=== PATIENT | female | born 1935 | race Caucasian/White ===

== ENCOUNTER 2019-06-01 16:41 | Inpatient (IN) ==
[2019-06-01] MEDS ORDERED: NS 1,000 ML IV ONE ×2 (16:45→19:16)
[2019-06-01] MEDS ORDERED: ZOFRAN IV ONE (16:45)
[2019-06-01] MEDS ORDERED: TORADOL IV ONE (16:45)
[2019-06-01] MEDS ORDERED: FENTANYL IV ONE (16:45)
[2019-06-01 17:23] LABS: BASO# 0.12 X1000 (0.0-0.2); BASO% 1.2 % (0.0-0.8); EOS# 0.02 X1000 (0.0-0.7); EOS% 0.2 % (0.0-10.0); HEMATOCRIT 37.1 % (37.0-47.0); HEMOGLOBIN 12.5 g/dL (12.0-16.0); IMM GRAN# 0.03 X1000 (0.0-0.04); IMM GRAN% 0.3 % (0.0-0.5); LYMPH# 0.77 X1000 (1.2-3.4); LYMPH% 7.5 % (20.5-51.1); MCH 31.6 PG (27-31); MCHC 33.7 g/dL (33-37); MCV 93.7 FL (81-99); MONO# 0.54 X1000 (0.11-0.59); MONO% 5.3 % (1.7-9.3); NEUT# 8.73 X1000 (1.4-6.5); NEUT% 85.5 % (42.2-75.2); PLT 124 X1000 (130-400); RBC 3.96 XMIL (4.2-5.4); RDW 13.5 % (11.5-14.5); WBC 10.21 X1000 (4.8-10.8)
[2019-06-01 17:31] LABS: INR 1.09; PROTIME 14.2 Seconds (11.0-16.0)
[2019-06-01 17:32] LABS: PTT 26.1 Seconds (22.3-41.8)
[2019-06-01 17:41] LABS: AGAP 14; ALB/GLOB RATIO 2.4; ALBUMIN 4.4 g/dL (3.5-5.0); ALKALINE PHOSPHATASE 54 U/L (32-104); BUN 11 mg/dL (8-22); CALCIUM 9.9 mg/dL (8.8-10.2); CHLORIDE 100 mmol/L (98-107); COSMO 280; CREATININE 0.5 mg/dL (0.5-0.9); ESTIMATED GFR > 60; GLUCOSE 159 mg/dL (70-104); GOT 15 U/L (10-30); GPT 10 U/L (10-36); POTASSIUM 3.7 mmol/L (3.5-5.1); SODIUM 139 mmol/L (136-145); TCO2 25 mmol/L (25-35); TOTAL BILIRUBIN 0.66 mg/dL (0.20-1.00); TOTAL PROTEIN 6.2 g/dL (6.3-8.3)
--- NOTE | 2019-06-01 17:59 | PROVIDER DOCUMENTATION ---
This chart was entered by Fern Henriquez Scribe, acting as scribe for David Hathaway MD. HPI-General Adult - General Stated Complaint: FALL Time Seen by Provider: 06/01/19 16:42 Source: patient, EMS Allergies/Adverse Reactions: Patient Allergies Allergy/AdvReac Type Severity Reaction Status Date / Time morphine Allergy Unknown Verified 06/01/19 16:58 Home Medications: Home Medication List Medication Instructions Recorded Confirmed Last Taken Type ATORVAstatin [Lipitor] 40 mg PO DAILY 10/26/13 06/01/19 03/01/16 07:00 History Sucralfate [Carafate] 1 gm PO 410/26/13 06/01/19 03/01/16 07:00 History Atenolol 1 tab PO DAILY 06/01/19 06/01/19 Unknown History Tizanidine HCl [Zanaflex] 1 cap PO TID 06/01/19 06/01/19 Unknown History - History of Present Illness -Gen Adult Nature of Presenting Problems: pt si a 83 yr old female presenting via EMS with right hip pain post fall, son reported to EMS pt tripped over comforter while making her bed. pt admits right hip pain and inability to bear weight no other complaints. Location of Pain/Injury: reports: lower extremity (right hip) Pain Radiation: reports: no radiation Quality of Pain: reports: aching Severity: reports: moderate Onset/Duration: reports: this afternoon Timing: reports: still present Context/Activities at Onset: reports: recent trauma history (fall) Modifying Factors: improves with: movement (worsens pain) Associated Symptoms: reports: joint pain, trouble walking. denies: back/neck pain Similar Symptoms Previously?: No Recently seen or treated by another doctor?: No Review of Systems - Adult - REVIEW OF SYSTEMS - ADULT Constitutional: denies: chills, fever Eyes: reports: no symptoms reported Ears, Nose, Mouth & Throat: reports: no symptoms reported Cardiovascular: denies: chest pain, palpitations, syncope Respiratory: denies: cough, shortness of breath Gastrointestinal: denies: abdominal pain, nausea, vomiting Genitourinary: reports: no symptoms reported Musculoskeletal: reports: joint pain. denies: back pain Integumentary: reports: no symptoms reported Neurological: denies: dizziness/vertigo, headache/migraines, syncope Psychiatric: reports: no symptoms reported Endocrine: reports: no symptoms reported Hematologic/Lymphatic: reports: no symptoms reported Allergic/Immunologic: reports: no symptoms reported All Other Systems: Reviewed and Negative Past History - Adult - PAST MEDICAL HISTORY-ADULT Review of Records: reports: Old Records Reviewed, Nursing Assessment Review, Medications Reviewed, Social history reviewed & non-contributory. Major Childhood Illnesses: reports: denies history Cardiovascular: reports: denies history Respiratory: reports: denies history Gastrointestinal: reports: denies history Obstetrical/Gynecological: reports: denies history Genitourinary: reports: denies history Musculoskeletal: reports: denies history Neurological: reports: denies history Endocrine/Immune: reports: denies history Other Conditions: reports: denies history - IMMUNIZATION STATUS Childhood Immunizations: See Nurse Assessment Flu Vaccine: See Nurse Assessment - FAMILY HISTORY Family History: reviewed, not pertinent - SOCIAL HISTORY Smoking: denies Substance Use: denies Living Situation: family Physical Exam-General - PHYSICAL EXAM-ADULT Initial Vital Signs Reviewed: Yes - CONSTITUTIONAL General Appearance: appears well, alert, no apparent distress - EYES Eyes: PERRL/EOMI - HEAD, EARS, NOSE, MOUTH & THROAT HENMT: normocephalic/atraumatic, moist mucous membranes - NECK Neck: non-tender, full range of motion, supple, normal inspection - RESPIRATORY Respiratory: chest non-tender, lungs clear, normal breath sounds, no respiratory distress, no accessory muscle use - CARDIOVASCULAR Cardiovascular: normal peripheral pulses, regular rate, rhythm, no edema - GASTROINTESTINAL (ABDOMEN) Abdominal Exam: normal bowel sounds, non tender, soft - LYMPHATIC Lymphatic: no adenopathy - MUSCULOSKELETAL Back Exam: normal inspection, no CVA tenderness, no vertebral tenderness Extremity: no calf tenderness, normal capillary refill, tenderness (minimal tenderness with palpation right hip, significant tenderness with movement), other (mild shortening right leg, no rotation). negative: normal range of motion (resitis external/internal rotation) - SKIN Integumentary: normal color, normal turgor, warm/dry - NEUROLOGIC Neurologic: grossly normal, no motor/sensory deficits - PSYCHIATRIC Psych/Mental Status: normal mood/affect Progress - PLAN OF CARE/RESULTS Result Diagrams: 06/01/19 17:10 06/01/19 17:10 - REASSESSMENT Reassessment #1 Time Reassessed: 17:46 Status: improving (Given IVF, fentanyl, zofran and geriatric dose of toradol. I spoke with patient's son, regarding admitting diagnosis and plan.) - CONSULTS/PCP/HOSPITALIST Notification #1 *Consult/PCP/Hospitalist*: sariah Calixto MD, paged at 1745 Time Discussed: 17:58 Consult Disposition: Will see in ED #2 Consult: KIA Hill, paged at 1745 Time Discussed: 17:57 Consult Disposition: Will see in ED, Admit Departure - Departure Date of Disposition Decision: 06/01/19 Time of Disposition Decision: 17:47 DIAGNOSIS: Intertrochanteric fracture of right femur Qualifiers: Encounter type: initial encounter Fracture type: closed Fracture alignment: displaced Qualified Code(s): S72.141A - Displaced intertrochanteric fracture of right femur, initial encounter for closed fracture Dementia Qualifiers: Dementia type: Alzheimer's disease Alzheimer's disease onset: late-onset Dementia behavioral disturbance: without behavioral disturbance Qualified Code(s): G30.1 - Alzheimer's disease with late onset; F02.80 - Dementia in other diseases classified elsewhere without behavioral disturbance Fall as cause of accidental injury at home as place of occurrence Qualifiers: Encounter type: initial encounter Qualified Code(s): W19.XXXA - Unspecified fall, initial encounter; Y92.009 - Unspecified place in unspecified non- institutional (private) residence as the place of occurrence of the external cause Disposition: ADMITTED INPATIENT 09 Certified Medical Emergency: Emergent Condition: Stable Referrals and Follow-Ups: Robi Carlos MD [Primary Care Provider] - - Critical Care Note This patient required my direct & personal management of CC.: No Attestation - Physician/ MONICA Attestation Patient care was provided by Advanced Practice Provider:: No The physician spent face to face time with patient:: Yes Advanced Practice Provider documentation review:: Supervising physician onsite and consulted in the evaluation and care of this patient. The physician did have a face to face encounter with the patient. This chart was documented by the indicated scribe, (Fern Henriquez Scribe) and accurately reflects the services I performed and decisions made by me, David Hathaway MD, as attested by the provider's signature.
--- NOTE | 2019-06-01 18:02 | Diag Imaging Result Doc PS360 ---
EXAM: CHEST-PORTABLE 06/01/2019 HISTORY: fall TECHNIQUE: AP portable at 1742 COMMENT: There is no evidence of acute cardiac or pulmonary disease. Compared to 04/07/2017 and are has been no significant change in the appearance the chest. IMPRESSION: No evidence of acute disease. Electronically signed by Rommel Patel 06/01/2019 5:59 PM
--- NOTE | 2019-06-01 18:05 | Diag Imaging Result Doc PS360 ---
EXAM: CT HEAD/C-SPINE W/O CONTRAST 06/01/2019 HISTORY: head injury/pain TECHNIQUE: This exam was performed using automated exposure control, adjustment of mA or kV according to patient size, and/or use of iterative reconstruction technique. COMMENT: There are calcifications in the internal carotid arteries bilaterally. There are calcifications in the basal ganglia bilaterally. There are patchy lucencies in the white matter both hemispheres. There is no evidence of mass effect, bleed, or abnormal extra-axial fluid collection. The calvarium is intact. Cervical spine: There are severe degenerative disc changes present at the C5-6 and C6-7 levels with posterior osteophyte formation and there is severe facet arthropathy at the C4-5 level particularly on the right side with mild anterolisthesis of C4 on C5. No prevertebral soft tissue swelling is present. Compared to the previous examination of 03/01/2016, there has been some worsening of the degenerative disc changes but otherwise no significant change has occurred. IMPRESSION: No evidence of acute intracranial or cervical spine disease. Chronic microvascular white matter changes and degenerative disc and facet disease as described. Electronically signed by Rommel Patel 06/01/2019 6:03 PM
[2019-06-01 18:10] LABS: URINE SOURCE CATH
--- NOTE | 2019-06-01 18:10 | Diag Imaging Result Doc PS360 ---
EXAM: CT PELVIS W/O CONTRAST 06/01/2019 HISTORY: fall, right sacral and hip pain TECHNIQUE: This exam was performed using automated exposure control, adjustment of mA or kV according to patient size, and/or use of iterative reconstruction technique. COMMENT: There is an intertrochanteric fracture of the right femur. The patient is status post left intertrochanteric fracture and internal fixation. There is calcium pyrophosphate deposition in the symphysis pubis. Compared to the previous study of 01/02/2013 neither fracture was present previously. There is also some fracture of the articular surface of the left femoral head which is probably a result of ischemic necrosis. IMPRESSION: Right intertrochanteric fracture. 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 Electronically signed by Rommel Patel 06/01/2019 6:07 PM
[2019-06-01 18:16] LABS: BILIRUBIN URINE NEGATIVE (NEGATIVE); BLOOD URINE NEGATIVE (NEGATIVE); COLOR YELLOW; GLUCOSE URINE NEGATIVE (NEGATIVE); KETONE URINE 10 mg/dL (NEGATIVE); LEUKOCYTES URINE NEGATIVE (NEGATIVE); NITRITE URINE NEGATIVE (NEGATIVE); PH URINE 6.5; PROTEIN URINE TRACE mg/dL (NEGATIVE); TURBIDITY URINE CLEAR (CLEAR); UROBILINOGEN URINE NORMAL (NORMAL)
[2019-06-01 18:18] LABS: UR EPITHELIAL CELLS <10 /HPF (<10); URINE BACTERIA NEGATIVE /HPF; URINE RBC <10 /HPF (<10); URINE WBC <10 /HPF (<10)
--- NOTE | 2019-06-01 18:49 | Diag Imaging Result Doc PS360 ---
KNEE 1-2 VIEWS-RIGHT - 06/01/2019 INDICATION: Femur Fracture TECHNIQUE: Two views COMPARISON: 06/29/2011 FINDINGS: There is a stable right total knee arthroplasty in good position. No hardware fracture or loosening. No bony erosions. IMPRESSION: No complication. Electronically signed by Casimiro Pinto 06/01/2019 6:47 PM
--- NOTE | 2019-06-01 18:51 | Diag Imaging Result Doc PS360 ---
FEMUR MIN 2 VIEWS RIGHT - 06/01/2019 INDICATION: Femur Fracture TECHNIQUE: Three views COMPARISON: 04/07/2017 FINDINGS: There is a moderately displaced intertrochanteric fracture of the right proximal femur. No dislocation. No distal fractures. IMPRESSION: Displaced intertrochanteric fracture of the right hip. Electronically signed by Casimiro Pinto 06/01/2019 6:49 PM
--- NOTE | 2019-06-01 19:06 | HISTORY AND PHYSICAL ---
CHIEF COMPLAINT: Fall, hip pain. HISTORY OF PRESENT ILLNESS: This is an 83-year-old female with a history of hyperlipidemia, gastroesophageal reflux disease, osteoporosis, and severe dementia. She presented to the emergency room via EMS after falling. At the time of my exam, there is no family member present. The patient is unable to participate in any history, so history and details are taken from the ER chart. According to EMS, the patient fell, tripping over a comforter while making her bed. She had right hip pain. She attempted to walk with her walker, was unable; therefore, EMS was called. CT scan of the pelvis revealed a right intertrochanteric fracture with ischemic necrosis of the left femoral head. CT of the head and C-spine revealed no acute intracranial or C-spine disease. PAST MEDICAL HISTORY: 1. Gastroesophageal reflux disease. 2. Hyperlipidemia. 3. Osteoporosis. 4. Left-sided breast cancer. PAST SURGICAL HISTORY: 1. Hysterectomy. 2. Cataract removal. 3. Left mastectomy. 4. Lumbar spine fusion. SOCIAL HISTORY: She is . She denies any tobacco, alcohol, or illicit drug use. FAMILY HISTORY: Unable to obtain. REVIEW OF SYSTEMS: Unable to obtain from the patient. ALLERGIES: According to the chart, morphine. HOME MEDICATIONS: A list will be obtained by the nursing staff and once verified, will review and restart as appropriate. PHYSICAL EXAMINATION: GENERAL: This is an 83-year-old female who is lying on the stretcher in the emergency room in no distress. VITAL SIGNS: Blood pressure is 167/82 with a heart rate of 80, respirations are 18, temperature is 98.3 degrees, with room air saturations 97%. EYES: Pupils equal, round, react to light. EOMs are intact. Sclerae anicteric. HEAD: Head is normocephalic, atraumatic. ENT: Mucous membranes are moist. NECK: Supple with trachea midline. CARDIOVASCULAR: Regular rate and rhythm. S1 and S2 appreciated. No murmur. Peripheral pulses are palpable x4 extremities. PULMONARY: Breath sounds are clear. No increased work of breathing noted. Chest rises and falls symmetrically with respiration. GASTROINTESTINAL: Abdomen is soft, nontender, nondistended with bowel sounds in all 4 quadrants. GENITOURINARY: Salcedo is patent to bedside bag with clear yellow urine draining. NEUROLOGIC: She is alert. She is oriented to herself. She is cooperative. EXTREMITIES: There is mild shortening of the right leg with no rotation. She does have some tenderness with some edema noted to the upper thigh into the right hip. SKIN: Warm and dry. LABORATORY DATA: 1. WBC is 10 with hemoglobin 12.5, hematocrit 37.1, and platelets 124,000. Sodium 139, potassium 3.7, BUN 11, creatinine 0.5 with glucose of 159. Urinalysis is essentially negative. 2. CT of the pelvis revealed right intertrochanteric fracture with ischemic necrosis of the left femoral head. 3. Head and cervical C-spine CT revealed no evidence of acute intracranial or cervical spine disease. Chronic microvascular white matter changes and degenerative disk and facet disease are noted. 4. Chest x-ray revealed no evidence of acute disease. ASSESSMENT AND PLAN: 1. Right intertrochanteric fracture. Dr. Calixto has been consulted. She will remain n.p.o. after midnight. We will apply Cooper's traction to her right lower extremity, 5 pounds. Pain and nausea control. 2. Osteoporosis. 3. Gastroesophageal reflux disease. We will continue her Carafate. 4. Hyperlipidemia. Continue Lipitor. 5. Will consult Physical Therapy and Social Work for rehab placement. 6. Deep venous thrombosis prophylaxis will be started postop. 7. Further treatments pending hospital course. Dictated by KIA Eldridge for Danny Gann MD cc: KIA Eldridge MD
--- NOTE | 2019-06-01 19:46 | HISTORY AND PHYSICAL ---
ADDENDUM: Seen and examined Ms. Handy today. Ms. Handy is an 83-year-old female with a history of hypertension, dyslipidemia, left breast cancer status post mastectomy with breast implant. Came to the emergency room after she sustained a mechanical fall resulting in trauma to the right hip, which imaging studies has revealed a displaced intertrochanteric fracture of the right hip. She has been admitted for medical care and orthopedic consult. OBJECTIVE: Current vitals are blood pressure 162/73, pulse of 80, respirations 16, temperature 98.3 degrees.General: Ms. Handy is an 83-year-old female. She is in bed in no distress. HEENT: Mucosa is pink and dry. Anicteric. Acyanotic. Neck: Supple. Chest: Clear. Extremities: The patient's finger shows chronic changes of osteoarthritis. The right lower extremity is externally rotated. Tender on manipulation at the level of the hip. The patient had a previous orthopedic surgery in the in the right knee and the left hip. LABORATORY DATA: Has also been reviewed, no changes. No concerns. Also documented patient's EKG, did not show any ST-segment or T-waves abnormality IMAGING STUDIES: Have also been reviewed. ASSESSMENT: 1. Status post status post mechanical fall resulting into a blunt trauma to the right hip, which resulted into a right intertrochanteric hip fracture. Patient is being admitted for orthopedic evaluation for possible surgical intervention to preserve her functionality. 2. Clinical volume depletion. Patient will be on fluid resuscitation overnight. 3. History of hypertension. We will continue with her home medications, including she is just on atenolol. We will withhold this for tomorrow morning. 4. Dyslipidemia. Will continue with atorvastatin. 5. Remote history of left breast cancer status post mastectomy, ER positive, MN positive, H2 negative. 6. Severe dementia, presumably Alzheimer's. We will start the patient on low- dose donepezil after the surgery. 7. Severe osteoporosis. We will get vitamin D levels and replace if needed. 8. Perioperative evaluation. Ms. Handy is an 83-year-old only known chronic comorbidities include hypertension, dyslipidemia, remote history of breast cancer. She currently denies any chest pain, no shortness of breath and no evidence of any congestive symptoms. She has no history of longstanding lung disease or end-stage kidney or liver disease. EKG on this admission does not show any acute changes. Ms. Handy is a moderate patient for a moderate nonvascular orthopedic surgery. We will recommend surgery to proceed. Please refer to the details of the history and physical that has been dictated by the BRICKLAYER SEWER in the chart. I have discussed the plan with her. cc: Danny Gann MD MTDD
--- NOTE | 2019-06-01 20:47 | EKG Report ---
Test Performed on : 06/01/2019 5:55:34 PM Test Reason : pre-op Blood Pressure : / mmHG Vent. Rate : 079 BPM Atrial Rate : 079 BPM P-R Int : 190 ms QRS Dur : 092 ms QT Int : 408 ms P-R-T Axes : 000 215 127 degrees QTc Int : 467 ms Normal sinus rhythm. Right superior axis deviation Incomplete right bundle branch block Abnormal ECG When compared with ECG of 07-APR-2017 17:41, TN interval has decreased QRS axis shifted left Unconfirmed Result
[2019-06-01] MEDS: CARAFATE PO SCH (23:05)
[2019-06-01] MEDS: ARICEPT PO SCH (23:05)
--- NOTE | 2019-06-02 02:20 | ORTHOPAEDICS CONSULTATION ---
DATE: 06/01/2019 SERVICE: Orthopedic surgery. REQUESTING PHYSICIAN: Danny Gann MD, hospitalist. REASON FOR CONSULTATION: Hip fracture. PAST MEDICAL HISTORY: 1. Gastric reflux. 2. Hyperlipidemia. 3. Osteoporosis. 4. Breast cancer. 5. Severe dementia. PAST SURGICAL HISTORY: 1. Closed reduction intramedullary nailing of left intertrochanteric femur fracture about 2 years ago. 2. Hysterectomy. 3. Left-sided mastectomy. 4. Lumbar spine fusion. 5. Cataracts. MEDICATIONS: 1. Atorvastatin. 2. Prilosec. 3. Atenolol. 4. Donepezil. 5. Zofran. 6. Sucralfate. ALLERGIES: The patient has allergy to morphine which causes nausea and dizziness. SOCIAL HISTORY: Patient lives in [place] with her son. She has severe dementia and does not get out of the house very much. History obtained from the son, states that she uses a cane to ambulate and has been doing so since her prior hip fracture 2 years ago. She does not have any history of tobacco, alcohol, or drug use. CHIEF COMPLAINT: Right hip pain. HISTORY OF PRESENT ILLNESS: Ms Handy is an 83-year-old lady who sustained a same-level fall walking around her bed at home earlier today. After falling, she was unable to get up or bear weight on the hip. She was thus taken to the ER on 06/01/2019, where x-rays were obtained demonstrating intertrochanteric femur fracture. Given these findings, Orthopedic Surgery was consulted. The patient denies hitting her head or any loss of consciousness. She denies any pain elsewhere in her body. She has no other complaints. PHYSICAL EXAMINATION: General: Ms. Handy is an 83-year-old female who appears well nourished, well developed, no acute distress. She is awake and alert, however, is not oriented to person, place, or time. She is severely demented during exam and conversation. Vital Signs: Temperature 98.1 degrees Fahrenheit, heart rate 85, respiratory rate 20, blood pressure 164/71, O2 sats 100% on room air. HEENT: Normocephalic and atraumatic. Respiratory: Nonlabored breathing. Cardiovascular: Regular rate and rhythm. Extremities: Examination of the right lower extremity shows skin to be intact. Patient has tenderness to palpation over the anterior lateral aspect of her right hip. She has pain with attempted log roll of the hip. She has well-healed surgical incision over her knee from prior total knee arthroplasty. She is nontender to palpation over her knee, leg, ankle or foot. Motor is intact in the EHL, tibialis anterior, gastrocsoleus complex. Sensation intact to light touch L3-S1. Dorsalis pedis pulse palpable and equal bilaterally. Thigh and calf soft and compressible. Examination of left lower extremity shows well-healed surgical incision from prior closed reduction intramedullary nailing. She is nontender in her left lower extremity. She is grossly neurovascularly intact. Thigh and calf soft and compressible. Examination of bilateral upper extremities shows skin intact. She has full painless range of motion of her shoulders, elbows, wrist, hand. No gross crepitus or deformity. Neurovascularly intact. LABORATORY DATA: White count 10, hemoglobin 13, hematocrit 37, platelets 124,000. INR is 1.1. Sodium 139, potassium 3.7, chloride 100, CO2 of 25, BUN 11, creatinine 0.5. Glucose 159. IMAGING: AP and lateral of the right femur as well as right knee were obtained and reviewed, demonstrating a displaced intertrochanteric femur fracture with mild shortening. She also has right total knee arthroplasty with the implants in good position with no signs of periprosthetic fracture. CT scan of the pelvis was also obtained and reviewed, again, demonstrating intertrochanteric femur fracture. ASSESSMENT: This is an 83-year-old female with right intertrochanteric femur fracture. PLAN: A long discussion was had with the patient as well as a separate discussion with the patient's son on the phone regarding diagnosis and treatment options. The patient's son is the power of mergers and acquisitions attorney and has decision making power given her severe dementia. I discussed treatment options with the son as well as patient regarding her fracture. Given her fracture pattern, she would benefit from undergoing operative fixation. I recommended open versus closed reduction intramedullary nailing of her femur fracture similar to procedure she had on the contralateral side. Surgery would give her the best chance of healing and also allow her to get up to bear weight on the leg and mobilize. Risks, benefits, alternative therapies were discussed with patient and her son regarding treatment options. Risks of surgery include, but not limited to risks of bleeding, infection, damage to nerves and vessels around the area, continued pain following surgery, malunion, nonunion, symptomatic hardware, failure of the fracture to heal, and need for revision surgery. There is also risk of anesthesia, including blood clot, stroke, heart attack, even . Patient and son understand these risks. All questions were answered. Informed consent was obtained. 1. The patient is to be admitted to the hospitalist service. She will get medical clearance for surgery. We will make her n.p.o. at midnight for planned surgical intervention tomorrow afternoon, when OR space is available. 2. The patient is to be nonweightbearing right lower extremity. Cooper's traction was ordered and set up in the room. 3. Salcedo catheter is placed. 4. Ice to the right lower extremity as needed for pain. 5. Hold chemical DVT prophylaxis until postoperatively. 6. Appreciate hospitalist recommendations.
[2019-06-02 06:44] LABS: BASO# 0.08 X1000 (0.0-0.2); BASO% 1.1 % (0.0-0.8); EOS# 0.01 X1000 (0.0-0.7); EOS% 0.1 % (0.0-10.0); HEMATOCRIT 34.8 % (37.0-47.0); HEMOGLOBIN 11.8 g/dL (12.0-16.0); IMM GRAN# 0.03 X1000 (0.0-0.04); IMM GRAN% 0.4 % (0.0-0.5); LYMPH% 11.1 % (20.5-51.1); MCH 31.7 PG (27-31); MCHC 33.9 g/dL (33-37); MCV 93.5 FL (81-99); MONO# 0.59 X1000 (0.11-0.59); MONO% 8.2 % (1.7-9.3); MPV 9.8 FL (7.4-10.4); NEUT% 79.1 % (42.2-75.2); PLT 113 X1000 (130-400); RBC 3.72 XMIL (4.2-5.4); RDW 13.6 % (11.5-14.5); WBC 7.21 X1000 (4.8-10.8)
[2019-06-02 07:13] LABS: AGAP 13; BUN 9 mg/dL (8-22); CALCIUM 9.3 mg/dL (8.8-10.2); CHLORIDE 102 mmol/L (98-107); COSMO 278; CREATININE 0.5 mg/dL (0.5-0.9); ESTIMATED GFR > 60; GLUCOSE 164 mg/dL (70-104); POTASSIUM 3.7 mmol/L (3.5-5.1); SODIUM 138 mmol/L (136-145); TCO2 23 mmol/L (25-35)
[2019-06-02] MEDS: TENORMIN PO SCH (10:01)
[2019-06-02] MEDS: ZANAFLEX PO SCH ×3 (10:01→17:40)
[2019-06-02] MEDS: CARAFATE PO SCH ×4 (10:01→20:46)
--- NOTE | 2019-06-02 11:31 | ORTHOPAEDICS PROGRESS NOTE ---
DATE: 06/02/2019 SUBJECTIVE: No acute events overnight. Patient is resting comfortably in the bed. She has Cooper's traction applied. She has been n.p.o. since midnight. OBJECTIVE: VITAL SIGNS: Afebrile. Vital signs stable. LABORATORY DATA: White count 7, hematocrit 35. INR 1.1. PHYSICAL EXAMINATION: Extremities: Examination of right lower extremity shows Cooper's traction to be in place in good position. Patient has tenderness to palpation around the anterior and lateral aspects of her hip. Skin is intact. Thigh and calf are soft and compressible. Toes are up and downgoing. Sensation is grossly intact throughout the right lower extremity. ASSESSMENT: An 83-year-old female with right intertrochanteric femur fracture. PLAN: A long discussion was had with patient's son, Zonia, last night regarding her injury and treatment options. She sustained a similar injury on the left hip about 2 years ago and underwent intramedullary nailing. Given her fracture pattern, I think she would benefit from undergoing closed reduction and intramedullary nailing of the right intertrochanteric femur fracture as well. I discussed in detail risks, benefits, and alternative therapies with the son. Risks of surgery include but are not limited to risks of bleeding, infection, damage to nerves and vessels around the area, continued pain following surgery, malunion, nonunion, need for revision surgery. There is also the risk of anesthesia as well as blood clot, stroke, heart attack, even . Given her baseline dementia, there is a good chance she will have some increased dementia postoperatively which hopefully will be transient in nature. Son is aware of the risks and all questions were answered and informed consent was obtained. We will plan on going to the operating room this afternoon to undergo closed reduction and intramedullary nailing of right intertrochanteric femur fracture. She needs to be n.p.o. until then. Ice to right hip as needed for pain. Appreciate Hospitalist recommendations. Hold chemical DVT prophylaxis until postoperatively.
[2019-06-02] MEDS ORDERED: DIPRIVAN 1% ONE ×2 (15:03→15:42)
[2019-06-02] MEDS ORDERED: KEFZOL 1 GM/D5W 1 GM/50 ML IVPB ONE (15:38)
[2019-06-02] MEDS ORDERED: SODIUM CHLORIDE 0.9% 10 ML ONE (15:42)
[2019-06-02] MEDS ORDERED: ROBINUL ONE (15:42)
[2019-06-02] MEDS ORDERED: XYLOCAINE-MPF 2% ONE (15:42)
[2019-06-02] MEDS ORDERED: FENTANYL ONE (15:42)
[2019-06-02] MEDS ORDERED: MARCAINE 0.5% PF ONE (15:43)
[2019-06-02] MEDS ORDERED: ZOFRAN ONE (16:18)
--- NOTE | 2019-06-02 16:20 | PROGRESS NOTE ---
DATE: 06/02/2019 SUBJECTIVE: This morning I saw Ms. Handy, she refers to be feeling okay. She continues to be remarkably cognitively impaired. She did not know where she was. She did not even know what is happening to her hip. She forgot that she had surgery to be done. OBJECTIVE: Vitals: Stable with a blood pressure of 98/47, pulse of 73, respirations 16, and temperature 97.9 degrees. General: Ms. Handy is an 83-year-old female. She is in bed in no distress. Mucosa is pink, and slightly dry. Anicteric. Acyanotic. Neck: Neck is supple. Respirations: Chest with good air entry bilaterally. There was no crepitations. No rhonchi. Cardiovascular: Regular rate and rhythm. There was no murmurs, no rubs, no gallops. GI: Abdomen is soft and nontender. Bowel sounds present. Extremities: No pedal edema. The patient has right knee with scar from previous orthopedic surgery. The right lower extremity is in an orthopedic stabilizer. SUPPLY CHAIN CONSULTANT: Patient is awake, alert, and oriented to person but disoriented to place and time. LABORATORY DATA: Reviewed and unremarkable. EKG shows normal sinus rhythm with right axis deviation, but no ST-segment or T-wave abnormality. ASSESSMENT: 1. Status post mechanical fall resulting into a right intertrochanteric hip fracture. Patient is pending orthopedic intervention. 2. Clinical volume depletion. We will continue with fluid resuscitation. 3. Hypertension controlled. 4. Dyslipidemia. 5. Remote history of left breast, ER positive, [place] positive, H2 negative breast cancer status post mastectomy. 6. 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 7. Osteoporosis. The patient has been started on low-dose donepezil. 8. Severe osteopenia/osteoporosis. 9. Vitamin D level will be checked and replaced accordingly. cc: Danny Gann MD
[2019-06-02] MEDS ORDERED: MILK OF MAGNESIA PO PRN (17:38)
--- NOTE | 2019-06-02 18:22 | Diag Imaging Result Doc PS360 ---
EXAM: FEMUR MIN 2 VIEWS RIGHT HISTORY: Fracture post op to be done in PACU TECHNIQUE: Two views COMPARISON: None. FINDINGS: There are lateral skin herbert. A tej goes through the femoral shaft. Single screw distally. Prior orthopedic placement of the knee. Prominent atherosclerosis. Electronically signed by Manjinder Talavera 06/02/2019 6:20 PM
--- NOTE | 2019-06-02 18:33 | Diag Imaging Result Doc PS360 ---
EXAM: XRAY PELVIS W/HIP 2-3VW RT HISTORY: Fracture Post op to be done in PACU TECHNIQUE: Two views COMPARISON: 06/01/2019 FINDINGS: There has been orthopedic fixation of the intertrochanteric fracture. The femoral head is well-positioned in the acetabulum. The lesser trochanter is displaced medially. There is a small bone fragment inferiorly. Electronically signed by Manjinder Talavera 06/02/2019 6:31 PM
--- NOTE | 2019-06-02 19:27 | OPERATIVE NOTE ---
PROCEDURE DATE: 06/02/2019 PREOPERATIVE DIAGNOSIS: Right intertrochanteric femur fracture. POSTOPERATIVE DIAGNOSIS: Right intertrochanteric femur fracture. PROCEDURE: Closed reduction intramedullary nailing of right intertrochanteric femur fracture. SURGEON: Edy Calixto MD IMPROVEMENT LEADER: KIA Benz, whose help was needed for retraction, reduction, placement of implants an to speed up the efficiency in the OR. ANESTHESIA: General endotracheal anesthesia. COMPLICATIONS: None. SPECIMENS: None. DRAINS: None. BLOOD LOSS: 100 mL. IMPLANTS: Synthes TFN femoral nail measuring 360 mm x 11 mm with a 95 mm cephalomedullary blade and a 46 mm distal interlocking screw. INDICATIONS FOR PROCEDURE: Ms Handy is an 83-year-old lady who presented to [facility] yesterday after sustaining a same-level fall and was unable to bear weight. X-rays demonstrated an intertrochanteric femur fracture. Given these findings, treatment options were discussed with the patient and her son. Patient's son is power of corporate associate attorney as the patient has severe dementia. Given her fracture pattern, I think she would benefit from closed reduction intramedullary nailing. Risks, benefits, alternative therapies were discussed with the patient and son regarding surgery. Risks of surgery include, but are not limited to risks of bleeding, infection, damage to nerves and vessels around the area, continued pain following surgery, malunion, nonunion, need for revision surgery. There is also risk of anesthesia as well as blood clot, stroke, heart attack, even . Patient and son understand these risks. All questions were answered. Informed consent was obtained. PROCEDURE IN DETAIL: Ms. Handy was identified by wristband and greeted in preop holding area on 06/02/2019. Her right lower extremity which was the operative site was marked with indelible ink per [facility] Sign Your Site Protocol. Following this, the patient was transferred back to the operating room for surgery. Upon entering the OR, general endotracheal anesthesia was induced on her hospital bed. She was then transferred in supine position onto [place] table. All bony prominences were well padded. Bilateral feet were placed in the well-padded boot holders and attached to the bed. At this time, her legs were placed in a scissor position and traction and mild internal rotation was placed on the operative side. Fluoroscopy was brought in showing good reduction on the lateral, however, the inferior piece of the calcar seemed to be wedged into the trochanter. At this time, the right lower extremity was then prepped and draped in routine sterile fashion. Formal time-out was performed confirming correct patient, procedure, operative site, operative side, administration of preop antibiotics. Everyone was in agreement. Patient received 2 g of Ancef prior to incision. Fluoroscopy was used to look at the tip of the trochanter and a standard 3 cm longitudinal incision was made just proximal to the trochanter. Knife was used to dissect through skin, subcutaneous tissue and deep fascia. At this time the tip of the trochanter was palpated. A guide pin was then placed onto the trochanter and medial trochanteric starting portal was obtained. We were satisfied with the pin placement on both AP and lateral views, pin was driven down the level of the lesser trochanter. At this time, the canal entry reamer was then used and taken down to the level of the lesser trochanter. Ball-tip guidewire was then taken down to the superior pole patella. Measuring device was then used and the nail was found to measure 360 mm. At this time, we ran a 12 mm reamer down the canal, which had no chatter. We then proceeded with opening a 360 mm x 11 mm nail. Nail was then assembled on the back table and checked for rotation and size. We then inserted the nail over the guidewire in routine fashion. Once the nail was fully seated, we then made our second incision using a long-handled knife through skin, subcutaneous fat, and IT band. A bone hook was then placed carefully over the anterior aspect of the femur to the medial calcar and lateral traction was pulled which anatomically reduced the inferior part of the femoral neck. The bone hook was held and traction was applied to this area while we placed our guidewire for cephalomedullary screw up into the head. We had basically center-center position of the screw on AP and lateral views. The screw blade length was then measured to be 95 mm. We then reamed up into the head 95 mm. At this time, the cephalomedullary blade was assembled and impacted in position while holding a bone hook in place. Once the blade was in place, we then locked the locking surgical device sales representative onto the blade and backed it off half a turn to allow for dynamic compression. We then compressed against the lateral cortex using the insertion device. At this time, bone hook was removed and we were found to have excellent reduction of the fracture. The insertion guide for the nail was then removed as were all instruments. At this time, we then turned our attention to placement of a single distal interlock screw using perfect [place] technique. The screw measured to be 46 mm. Following this, the final AP and lateral views of the hip fracture site in the knee were taken and saved. We then copiously irrigated all wounds with normal saline. Then 0 Vicryl sutures used for deep closure the IT band as well as deep fascia proximally, 2-0 Vicryl suture was used for subcutaneous tissue closure, followed by herbert for skin closure. Then 35 mL of 0.25% Marcaine with epinephrine were then injected around all incision sites for local analgesia. Wounds were then dressed with Xeroform, 4x4s, and [place] dressings. At this time, patient was then extubated, transferred over to her hospital bed and taken to recovery in stable condition. Prior to leaving the OR, I ranged her hip, checking for rotation, leg length and alignment. Leg lengths appeared equal to the contralateral side. Patient was then transferred to recovery in stable condition. There were no acute complications during the procedure. All sponge and sharp counts were correct at the conclusion of the procedure.
[2019-06-02] MEDS: LOVENOX SUBQ SCH (19:59)
[2019-06-02] MEDS: PERIDEX MT SCH (20:46)
[2019-06-02] MEDS: LIPITOR PO SCH (20:46)
[2019-06-02] MEDS: ARICEPT PO SCH (20:46)
[2019-06-02] MEDS: COLACE PO SCH (20:46)
[2019-06-03] MEDS: TYLENOL PO SCH ×3 (03:27→17:56)
[2019-06-03] MEDS: LOVENOX SUBQ SCH (05:10)
[2019-06-03 06:52] LABS: HEMATOCRIT 27.9 % (37.0-47.0); HEMOGLOBIN 9.3 g/dL (12.0-16.0)
[2019-06-03 07:31] LABS: AGAP 13; BUN 15 mg/dL (8-22); CALCIUM 8.6 mg/dL (8.8-10.2); CHLORIDE 100 mmol/L (98-107); COSMO 279; CREATININE 0.5 mg/dL (0.5-0.9); ESTIMATED GFR > 60; GLUCOSE 176 mg/dL (70-104); POTASSIUM 3.5 mmol/L (3.5-5.1); SODIUM 137 mmol/L (136-145); TCO2 24 mmol/L (25-35)
[2019-06-03] MEDS: CARAFATE PO SCH ×4 (09:07→20:56)
[2019-06-03] MEDS: TENORMIN PO SCH (09:07)
[2019-06-03] MEDS: LIPITOR PO SCH (09:07)
[2019-06-03] MEDS: PERIDEX MT SCH ×2 (09:07→20:56)
[2019-06-03] MEDS: ZANAFLEX PO SCH ×3 (09:08→17:57)
[2019-06-03] MEDS: FERROUS SULFATE PO SCH (09:08)
--- NOTE | 2019-06-03 11:21 | ORTHOPAEDICS PROGRESS NOTE ---
DATE: 06/03/2019 SUBJECTIVE: No acute events overnight. Patient reports minimal pain in the hip. She appears to be resting comfortably. OBJECTIVE: Afebrile. Vital signs stable. Hematocrit 28.Extremities: Examination of the right lower extremity shows surgical dressing to be clean, dry, intact. No fluctuance or sign of hematoma on the lateral aspect of her thigh. Thigh and calf are soft and compressible. Motor is grossly intact EHL, tibialis anterior, gastrocsoleus complex. Sensation intact to light touch in the right lower extremity. Brisk capillary refill in her toes. IMAGING: Postoperative AP pelvis, lateral of the right hip and femur were reviewed demonstrating good position of hardware and reduction of fracture of her intertrochanteric femur fracture. ASSESSMENT: This is an 83-year-old female status post closed reduction and intramedullary nailing of right intertrochanteric femur fracture. Postoperative day one. PLAN: 1. Patient to be weightbearing as tolerated right lower extremity. Physical therapy to mobilize with assistive device. 2. Ice to right lower extremity as needed for pain. 3. Lovenox DVT prophylaxis. 4. Appreciate hospitalist recommendations. 5. Disposition per primary team. Patient would likely benefit [facility] a [facility] facility. Social Work and Automatic Nailing Machine Operator have already been consulted and are working on this. The patient will follow up with me in clinic in two weeks.
--- NOTE | 2019-06-03 13:30 | PROGRESS NOTE ---
DATE: 06/03/2019 SUBJECTIVE: Early this morning Ms. Handy refers to be doing well. She was actually sleeping and talked very little at the time of the encounter. OBJECTIVE: Vital signs: Blood pressure 120/42, pulse of 99, respirations 16, temperature 98.7 degrees. The patient was saturating about 95/91% on room air. General: Ms. Handy is an 83-year- old, elderly, female who was in bed, did not seem to be in any cardiopulmonary distress. Head: Mucosa is pink and moist. Anicteric. Acyanotic. Neck: Supple. Respiratory: Chest is clear to auscultation. There were no crepitations, no rhonchi. Cardiovascular: Regular rate and rhythm. No murmurs. GI: Abdomen was soft. Bowel sounds present. Extremities: No pedal edema. There is a previous scar on the right knee. The right hip has a sterile dressing over the surgical site. ASSOCIATE TRAINER: Patient was sleeping but easily arousable. DATA: Hemoglobin of 9.3. Chemistry is within normal range. Vitamin D level is 23.2 which is insufficient. I have reviewed the operative notes, procedure done yesterday was a closed reduction and intramedullary nailing of a right intertrochanteric femur fracture. ASSESSMENT: 1. Status post mechanical fall resulting into a right intertrochanteric hip fracture. The patient is status post closed reduction and intramedullary nailing of the right intertrochanteric femur fracture. Today is day 1 postop. She seems to be fairly stable. Will be pending physical therapy evaluation today. 2. Clinical volume depletion on admission, resolved. 3. Hypertension, controlled. 4. Dyslipidemia. 5. Remote history of ER positive, HR positive, HER-2 negative breast cancer, status post left mastectomy. 6. Severe dementia, presumably a combination of Alzheimer's and vascular. Patient has been started on low-dose donepezil. 7. Vitamin D insufficiency. We will start the patient on replacement. PLAN: In general, Ms. Handy is fairly stable. She remains quite confused, which I think is her baseline. She is day 1 post orthopedic intervention. We are going to be waiting on physical therapy to evaluate her today. Ultimately, disposition will be to get her to rehab. Social Work is aware and working on this. cc: Danny Gann MD
[2019-06-03] MEDS: ARICEPT PO SCH (20:56)
[2019-06-03] MEDS: COLACE PO SCH (20:56)
[2019-06-04] MEDS: OXY IR PO PRN ×3 (00:50→22:16)
[2019-06-04] MEDS: TYLENOL PO SCH ×4 (00:50→18:14)
[2019-06-04] MEDS: LOVENOX SUBQ SCH (06:01)
[2019-06-04 07:06] LABS: HEMATOCRIT 23.8 % (37.0-47.0)
[2019-06-04 08:42] LABS: RETIC% 3.25 % (0.8-2.1); RETIC-HE 33.8 PG (28.2-36.6)
[2019-06-04 08:52] LABS: IRON SATURATION 18 %; TIBC 182 ug/dL; TOTAL IRON 33 ug/dL (49-151); UNBOUND IRON 149 ug/dL (112-346)
[2019-06-04 09:11] LABS: FERRITIN 290 ng/mL (13-150)
[2019-06-04] MEDS: CARAFATE PO SCH ×4 (11:26→22:14)
[2019-06-04] MEDS: TENORMIN PO SCH (11:27)
[2019-06-04] MEDS: FERROUS SULFATE PO SCH (11:27)
[2019-06-04] MEDS: ZANAFLEX PO SCH ×3 (11:27→18:14)
[2019-06-04] MEDS: LIPITOR PO SCH (11:27)
[2019-06-04] MEDS: VITAMIN D PO SCH (11:27)
[2019-06-04] MEDS: PERIDEX MT SCH ×2 (11:27→22:13)
[2019-06-04] MEDS ORDERED: VENOFER 200 MG in NS 100 ML IV ONE (12:00)
--- NOTE | 2019-06-04 12:53 | PROGRESS NOTE ---
DATE: 06/04/2019 SUBJECTIVE: Seen and examined Ms. Handy today. Ms. Handy refers to be feeling a lot better. She continues to be slightly confused but very, very polite. Does not really remember a lot of things. She did not even remember that she had surgery. OBJECTIVE: Vital signs: Blood pressure 107/42, pulse of 82, respirations 15, temperature of 98.1 degrees. Patient is saturating 97% on room air. General: Ms. Handy is an 87-year-old elderly female. She is in bed, no distress. HEENT: Mucosa is pink and moist. Anicteric. Acyanotic. Neck: Supple. Chest: Clear to auscultation. No crepitations. No rhonchi. Cardiovascular: Regular rate and rhythm. No murmurs, no rubs, no gallops. Abdomen: Soft, nontender. Bowel sounds present. Extremities: No pedal edema. Right knee has an old scar. The right hip has a sterile dressing over the surgical site. SENIOR AUDIT MANAGER: Patient is awake, alert, oriented to person but disoriented to place and time. She will however sustain very rational conversation. LABORATORY DATA: Hemoglobin is down to 8.00. Chemistry is also reviewed, is unremarkable. Iron studies reveal mild underlying iron deficiency. ASSESSMENT: 1. Status post mechanical fall resulting in a right intertrochanteric hip fracture. Patient is status post closed reduction and intramedullary nailing of the right intertrochanteric femur fracture. Today is day 2 postop. Physical therapy has been consulted. Orthopedics is on board. 2. Clinical volume depletion, improved. 3. Hypertension, controlled. 4. Dyslipidemia, stable. 5. Remote history of ER positive MS positive, HER-2 negative breast cancer, status post left mastectomy. 6. Severe dementia. The patient is currently on low-dose donepezil. 7. Vitamin D insufficiency, replace. 8. Anemia. The patient's hemoglobin went down to 8.0 after the surgery. We are going to continue keeping an eye. Iron studies revealed that there might be a mild iron deficiency. The patient has been started on p.o. iron supplement. We are also going to give her 1 time dose of iron infusion. In general, Ms. Handy continues to be stable. We are pending physical therapy evaluation today. We will continue with her current medications. Hopefully, we can get her to rehab tomorrow. Social Work has been consulted. cc: Danny Gann MD Addendum: This afternoon, I was notified by the nurse that patient had been in 2nd degree AV block and was less responsive at the time. I reviewed the tele monitor strip which did confirmed that. The EKG immediately after this episode revealed 1st degree AV block with RAD and partial RBBB. Will repeat EKG and Echo in the morning DC atenolol and donepezil. MTDD
--- NOTE | 2019-06-04 18:21 | ORTHOPAEDICS PROGRESS NOTE ---
DATE: 06/04/2019 SUBJECTIVE: No acute events overnight. The patient worked with physical therapy today and was able to stand at bedside; however, was not able to ambulate. She has had some increased drowsiness last night and throughout the day today. No other complaints. OBJECTIVE: Vital signs: Afebrile. Vital signs stable. Labs: Hematocrit 24. Extremities: Examination of right lower extremity shows surgical dressing to be clean, dry, and intact. Thigh and calf soft and compressible. Toes are up and downgoing. Sensation grossly intact in the right lower extremity. ASSESSMENT: This is an 83-year-old female status post closed reduction, intramedullary nailing, right intertrochanteric femur fracture. Postoperative day 2. PLAN: 1. Patient will be weightbearing as tolerated, right lower extremity. Physical therapy to mobilize with assistive device. 2. Ice, right lower extremity, as needed for pain. 3. Lovenox, DVT prophylaxis. 4. The patient with vitamin D insufficiency. Recommend vitamin D supplementation likely with 50,000 units weekly in order to boost this and assist with fracture healing. 5. Appreciate hospitalist recommendations. 6. Disposition per primary team. Patient is planning on being discharged to inpatient rehab facility once bed is available. She will follow up with me in clinic in 2 weeks for wound check and x-rays.
[2019-06-04] MEDS ORDERED: NAMENDA PO SCH (21:00)
[2019-06-04] MEDS: COLACE PO SCH (22:13)
[2019-06-05] MEDS: OXY IR PO PRN (04:17)
[2019-06-05] MEDS: TYLENOL PO SCH ×4 (04:17→17:12)
[2019-06-05] MEDS: ZOFRAN IV PRN ×2 (05:00→08:59)
[2019-06-05 06:21] LABS: HEMATOCRIT 24.5 % (37.0-47.0); HEMOGLOBIN 8.1 g/dL (12.0-16.0); MCH 32.1 PG (27-31); MCHC 33.1 g/dL (33-37); MCV 97.2 FL (81-99); MPV 9.9 FL (7.4-10.4); RBC 2.52 XMIL (4.2-5.4); RDW 14.1 % (11.5-14.5); WBC 6.43 X1000 (4.8-10.8)
[2019-06-05] MEDS: LOVENOX SUBQ SCH (06:25)
--- NOTE | 2019-06-05 06:38 | EKG Report ---
Test Performed on : 06/05/2019 06:07:38 AM Test Reason : 3rd degree heart block Blood Pressure : / mmHG Vent. Rate : 084 BPM Atrial Rate : 084 BPM P-R Int : 204 ms QRS Dur : 098 ms QT Int : 382 ms P-R-T Axes : 055 -18 041 degrees QTc Int : 451 ms Normal sinus rhythm. Incomplete right bundle branch block Borderline ECG When compared with ECG of 04-JUN-2019 13:13, (Unconfirmed) No significant change was found Confirmed by Ankit SAVAGE, Cordell Burroughs ([id number]) on 06/05/2019 9:26:11 AM
[2019-06-05 07:09] LABS: AGAP 13; ALBUMIN 3.1 g/dL (3.5-5.0); BUN 24 mg/dL (8-22); CALCIUM 8.6 mg/dL (8.8-10.2); CHLORIDE 101 mmol/L (98-107); COSMO 283; CREATININE 0.6 mg/dL (0.5-0.9); ESTIMATED GFR > 60; GLUCOSE 155 mg/dL (70-104); PHOSPHORUS 2.3 mg/dL (2.7-4.5); POTASSIUM 3.5 mmol/L (3.5-5.1); SODIUM 138 mmol/L (136-145); TCO2 24 mmol/L (25-35)
[2019-06-05] MEDS ORDERED: POTASSIUM PHOSPHATE 40 MEQ in NS 250 ML IV ONE (08:35)
[2019-06-05] MEDS: LIPITOR PO SCH (08:59)
[2019-06-05] MEDS: CARAFATE PO SCH ×3 (08:59→17:11)
[2019-06-05] MEDS: VITAMIN D PO SCH (08:59)
[2019-06-05] MEDS: PERIDEX MT SCH (08:59)
[2019-06-05] MEDS: FERROUS SULFATE PO SCH (09:00)
--- NOTE | 2019-06-05 13:55 | CARDIOLOGY CONSULTATION ---
DATE: 06/05/2019 CHIEF COMPLAINT ON PRESENTATION: Fall with hip pain. HISTORY OF PRESENT ILLNESS: Ms. Handy is an 83-year-old white female with a history of hyperlipidemia and osteoporosis. She has a significant degree of dementia. She does not recall having a fall. She is not aware why she is in the hospital. She does not recall having an operation. The patient is very pleasant. She attempts to answer all questions. She denies any episodes of syncope, lightheadedness or dizziness. She is not having any active chest pain. PAST MEDICAL HISTORY: Significant for reflux disease, hyperlipidemia, osteoporosis, previous breast cancer. SOCIAL HISTORY: She is . No tobacco, alcohol or illicit drugs. REVIEW OF SYSTEMS: All unable to be obtained secondary to significant degree of dementia. PHYSICAL EXAMINATION: She is afebrile. Heart rate 86, blood pressure 130/52.General: She is in no acute distress. HEENT: Oropharynx moist. Poor dentition. [place] conjunctivae. White sclerae. Neck: Shows no obvious thyromegaly or thyroid tenderness. Cardiovascular: She sounds to be in a regular rate and rhythm. She does not have any murmurs. She does not have an S3. She does not have any lower extremity edema. Chest: Clear to auscultation bilaterally. She has no increased work of breathing. Abdomen: Soft, nontender, nondistended. She has no obvious organomegaly. Skin: Warm and dry throughout without any rashes. Neurological: She is moving all extremities well. She has no lateralizing deficits. PERTINENT DATA: Her telemetry tracings were reviewed by me. They predominantly show sinus rhythm. She has some episodes of what appears to be a high degree AV block with a 3-1/2 second pause. This occurred on the at 5:16 a.m. She had an episode on the at 6:16 a.m. which again appears to be a likely 2:1 AV block. On the at 12:52 she appears to have again AV block. It is unclear whether this could possibly be [place] or possibly 2:1. There is some suggestion it could be a higher degree of AV block. On the at 5:16 a.m. again it appears to be a 2:1 AV block, all tracings were reviewed by me. She had a chest x-ray demonstrates no evidence of any acute findings. Her EKG on the demonstrates sinus rhythm. Next EKG occurring on the shows sinus rhythm. Her lab data demonstrates a white count of 6.4, hematocrit 24, this is down from 37 on the 16, her sodium is 138, potassium 3.5, her BUN is 24, creatinine 0.6. Her potassium has been normal this hospitalization, her mag level is 2.1. Her TSH is 5.5 which is slightly elevated. ASSESSMENT: Ms. Handy is an 83-year-old female who suffered a fall. She has had hip fracture with operative repair. She has a high level of dementia. PLAN: She appears to have a high degree AV block. She was on beta-blockers when she presented unclear dose listed as 1 tablet daily, possibly 25 mg daily. We will arrange for an outpatient monitor for the patient to wear, continuing to monitor. Unfortunately, we are not able to assess symptoms and many of her episodes seem to be asymptomatic and occurring in the pulmonology physician hours. Her echocardiogram was reviewed and it seems to demonstrate a preserved ejection fraction. cc: Guevara Sandoval MD
--- NOTE | 2019-06-05 15:28 | DISCHARGE SUMMARY ---
ADMISSION DATE: 06/01/2019 DISCHARGE DATE: 06/05/2019 DISPOSITION: [facility]. FOLLOWUP: 1. Dr. Robi Carlos. 2. Dr. Calixto. 3. Dr. Guevara Sandoval. CONSULTATIONS DURING THIS ADMISSION: Orthopedics was consulted. Patient was seen by Dr. Calixto. Cardiology was consulted. Patient was seen by Dr. Guevara Sandoval. INVASIVE PROCEDURES DONE DURING THIS ADMISSION: A closed reduction and intramedullary nailing of the right intertrochanteric femur fracture was done by Dr. Calixto on 06/02/2019. ADMISSION DIAGNOSES: 1. Right intertrochanteric hip fracture. 2. Osteoporosis. 3. Dyslipidemia. DIAGNOSES AT THE TIME OF DISCHARGE: 1. Status post mechanical fall resulting in a right intertrochanteric hip fracture. Patient is status post closed reduction and intramedullary nailing of the right intertrochanteric femur fracture. 2. Clinical volume depletion, improved. 3. Hypertension. 4. Dyslipidemia. 5. 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 6. Severe dementia. 7. Vitamin D insufficiency. 8. Anemia of chronic disease. 9. High-degree atrioventricular block (intermittently second and third-degree; however, patient seems to be asymptomatic). DISCHARGE MEDICATIONS: 1. Atorvastatin 40 mg p.o. daily. 2. Colace 200 mg p.o. at bedtime. 3. Namenda 5 mg p.o. at bedtime. 4. Iron sulfate 325 p.o. daily. 5. Oxycodone 5 mg p.o. q.4 p.r.n. 6. Vitamin D. PRESENTING COMPLAINT: Fall, hip pain. HISTORY OF PRESENTING COMPLAINT: Ms. Handy is an 83-year-old, female who has a history of dyslipidemia, osteoporosis, severe dementia. Presented to the emergency room after she sustained a mechanical fall, sustaining injury to the right hip. She was immediately not able to get up, called for help, was brought into the emergency room, was found to have a right intertrochanteric hip fracture. She was admitted for management. HOSPITAL COURSE: Ms. Handy was admitted to the surgical floor, was initially fluid resuscitated. Imaging studies were done as well as EKG. Initial EKG did show a first-degree heart block, left axis deviation, and incomplete right bundle branch block. She was quite asymptomatic from that standpoint. However, it was clear that she had a severe cognitive impairment. She was not able to give most of her history. Ms. Handy underwent surgical intervention. Postoperatively, physical therapy was consulted. She continued to do well. Unfortunately, her telemonitoring at some point revealed a second-degree heart block. Early this morning, it also showed that she had a third-degree. She has been evaluated by cardiology. They think that the episode usually happens when she is at rest and it is asymptomatic, and they would prefer to follow to monitor the heart on an outpatient basis and intervene when necessary. At this point, Ms. Handy herself is completely asymptomatic. She refers to feel well. Her current vitals, blood pressure is 130/56, pulse of 83, respirations are 16, temperature is 98.2 degrees. Ms. Handy is clinically stable. We think she is okay for discharge to continue with her physical zoroastrian. She will also need to follow up with Dr. Guevara Sandoval to monitor the heart and intervene accordingly depending on the findings. Time spent for discharge is 38 minutes. cc: Danny Gann MD
[2019-06-05 17:37] VITALS: BP 120/83
--- NOTE | 2019-06-05 18:14 | ORTHOPAEDICS PROGRESS NOTE ---
DATE: 06/05/2019 SUBJECTIVE: No acute events overnight. The patient did have some AV block and cardiology was consulted. She denies any pain in her right hip. She has significant dementia. OBJECTIVE: Afebrile. Vital signs stable. Hematocrit 25.Extremities: Examination of right lower extremity shows surgical dressings to be clean, dry, intact. Thigh and calf soft and compressible. Toes are up and downgoing. Grossly neurovascularly intact. ASSESSMENT: This is an 83-year-old female status post closed reduction intramedullary nailing right intertrochanteric femur fracture. PLAN: 1. Patient is to be weightbearing as tolerated right lower extremity. Physical therapy to continue to mobilize with assistive device. She ambulated 45 feet today with walker and minimal assistance. 2. Lovenox DVT prophylaxis. Patient will need 6 weeks DVT prophylaxis for fracture. 3. Appreciate hospitalist recommendations. 4. Ice to right hip as needed for pain. 5. Disposition. The patient is to be discharged to [facility] rehab today. She will follow up with me in clinic in 2 weeks for wound check and x-rays.
--- NOTE | 2019-06-06 05:47 | ECHO REPORT ---
ORDER DATE: 06/05/2019 MEASUREMENTS: 1. Septal thickness 0.8. 2. Left ventricular internal diameter in diastole 4.5. 3. Posterior wall thickness 0.7. 4. Left ventricular internal diameter in systole 2.6. 5. Aortic root 3.0. 6. Left atrium 3.5. SUMMARY: 1. Technically difficult study due to limited acoustic window quality. No true apical windows were available. 2. Aortic valve is trileaflet and opens normally on 2-dimensional images. Peak gradient across the valve is less than 10 mmHg. Mitral, tricuspid, and pulmonic valves are without evidence of structural abnormality with trace mitral regurgitation and moderate tricuspid regurgitation. The estimated systolic PA pressure by Doppler is 125 mmHg suggesting very severe pulmonary hypertension. Aortic root is normal in size. 3. Normal left ventricular dimensions demonstrated. Estimated left ventricular ejection fraction appears to be at least 65%. No regional wall motion abnormality is evident. Doppler suggests grade 1 left ventricular diastolic dysfunction. Left atrium is normal in size. Right atrium and right ventricle appears subjectively enlarged on 2-dimensional images with mildly depressed right ventricular systolic function. 4. No pericardial effusion. 5. Appearance of inferior vena cava suggests normal central venous pressure. CONCLUSIONS: 1. Technically difficult study. 2. Moderate tricuspid regurgitation with very severe pulmonary hypertension by Doppler. 3. Estimated left ventricular ejection fraction at least 65%. 4. Right atrium and right ventricle appears subjectively enlarged on 2-dimensional images with mildly reduced right ventricular systolic function. cc: MD Danny Mancia MD
== END 2019-06-05 17:41 | DRG 481 ==
LOC: SUPCPDRO → ED 16:41 → 4N 19:24
PROVIDERS: ATTEND Internal Medicine